=== PATIENT | female | born 1965 | race Asian ===

== ENCOUNTER 2022-03-18 16:28 | Emergency (ER) | payer OTHER ==
[~2022-03-18] VITALS: Ht 172.7 cm; Wt 63.5 kg
[2022-03-18 16:30] VITALS: BP_SYST 151
--- NOTE | 2022-03-18 17:12 | NUR ---
Pt bib self from home CC Abdominal pain 8/10 Onset 1 week ago. RUQ radiates to right flank. Denies NVD. Abdomen is bloated and distended. No appetite. Pt states completed Macrobid ABX 2 weeks ago Related to UTi. Denies past medical hx. has had a double masectomy in 2016.
[2022-03-18] MEDS ORDERED: IBUPROFEN 600 MG TABLET PO ONE (17:30)
[2022-03-18] MEDS ORDERED: ACETAMINOPHEN 500 MG TABLET PO ONE (17:30)
--- NOTE | 2022-03-18 17:45 | NUR ---
ER at bedside examining patient.
--- NOTE | 2022-03-18 18:00 | NUR ---
Patient given written and verbal discharge instructions and verbalizes understanding. ER MD discussed with patient the results and treatment provided. Patient in stable condition. ID arm band removed. Opportunity for questions provided and answered. Medication side effect fact sheet provided.
[2022-03-18 18:04] LABS: BILIRUBIN,URINE NEGATIVE (NEGATIVE); BLOOD, URINE 1+ (NEGATIVE); COLOR,URINE YELLOW (YELLOW); GLUCOSE,URINE NEGATIVE (NEGATIVE); KETONES,URINE TRACE (NEGATIVE); LEUKOCYTE ESTERASE ,URINE NEGATIVE (NEGATIVE); NITRITE, URINE NEGATIVE (NEGATIVE); PROTEIN URINE NEGATIVE (NEGATIVE); UROBILINOGEN,URINE 0.2 (0.2-1.0)
[2022-03-18 18:12] LABS: BASOPHILS # (AUTO) 0.1 K/uL (0.0-0.2); BASOPHILS % (AUTO) 1.1 % (0.0-2.0); EOSINOPHILS # (AUTO) 0.1 K/uL (0.0-0.4); EOSINOPHILS % (AUTO) 2.5 % (0.0-4.0); HEMATOCRIT 40.6 % (36-48); LYMPHOCYTES # (AUTO) 1.6 K/uL (1.0-5.5); LYMPHOCYTES % (AUTO) 31.7 % (20.5-51.5); MEAN CORPUSCULAR HEMOGLOBIN 31 pg (27-31); MEAN CORPUSCULAR HGB CONC 35 % (32-36); MEAN CORPUSCULAR VOLUME 89 fL (79.0-98.0); MONOCYTES # (AUTO) 0.4 K/uL (0.0-1.0); MONOCYTES % (AUTO) 7.2 % (1.7-9.3); NEUTROPHILS # (AUTO) 2.9 K/uL (1.8-7.7); NEUTROPHILS % (AUTO) 57.5 % (40.0-70.0); PLATELET COUNT (AUTO) 205 K/uL (130-430); RED BLOOD CELL COUNT(AUTO) 4.59 MIL/uL (4.2-6.2); RED CELL DISTRIBUTION WIDTH 13.4 % (9.0-15.0); WHITE BLOOD COUNT (AUTO) 5.1 K/uL (4.8-10.8)
[2022-03-18 18:14] LABS: BACTERIA,URINE FEW /HPF (None Seen); CLARITY/URINE CLEAR (CLEAR); RBC,URINE NONE SEEN /HPF (0-3); WBC,URINE 0-3 /HPF (0-3)
[2022-03-18 18:15] LABS: MUCUS,URINE None Seen /LPF (None Seen)
[2022-03-18 18:33] LABS: CALCIUM 9.2 mg/dL (8.4-11.0); CREATININE 0.89 mg/dL (0.55-1.30)
[2022-03-18 18:40] LABS: ALBUMIN 3.8 g/dL (3.4-4.8); TOTAL BILIRUBIN 0.3 mg/dL (0.0-1.0)
[2022-03-18 21:19] VITALS: BP_SYST 151
== END 2022-03-18 21:19 | disposition home or self-care (01) ==
LOC: SED 16:28
DX: R10.31 Right lower quadrant pain (principal); Z79.899 Other long term (current) drug therapy
CPT/HCPCS: 36415; 76376; 80053; 81000; 83690; 85025; 99284

== ENCOUNTER 2022-04-17 15:27 | Emergency (ER) | payer OTHER ==
[~2022-04-17] VITALS: Ht 172.7 cm; Wt 61.2 kg
[2022-04-17 15:27] VITALS: BP_SYST 146
--- NOTE | 2022-04-17 15:30 | NUR ---
Patient triaged and placed in waiting room. VSS and patient appears in no acute distress at this time. Accompanied by SELF, awaiting available bed, and MD notified of need for MSE.
--- NOTE | 2022-04-17 18:00 | NUR ---
Patient left without being seen
--- NOTE | 2022-04-17 18:15 | NUR ---
Patient left without being seen
--- NOTE | 2022-04-17 18:30 | NUR ---
Patient left without being seen
== END 2022-04-17 18:30 | disposition left against medical advice (07) ==
LOC: SED 15:27
DX: R00.2 Palpitations (principal); Z53.21 Procedure and treatment not carried out due to patient leaving prior to being seen by health care provider